=== PATIENT | male | born 1980 | race Caucasian/White ===

== ENCOUNTER 2020-07-31 16:25 | Emergency (ER) | payer OTHER, SELFPAY ==
--- NOTE | 2020-07-31 16:26 | ED.SKABFB ---
HPI - Skin/Abscess/Foreign Bdy General Chief complaint: Skin/Abscess/Foreign Body Stated complaint: poison cari Time Seen by Provider: 07/31/20 16:26 Source: patient and RN notes reviewed History of Present Illness HPI narrative: Patient is a 40-year-old male who presents the urgent care with complaints of poison cari to bilateral upper arms and bilateral lower legs. Patient states that he came in contact with possible poison cari or poison sumac approximately 3 to 4 days ago. Patient states that he did not wake up with a burning/fiery skin or rash until this morning. States that he has not done anything [id number] for his symptoms. No other acute complaints. No acute distress noted. Patient aware of the plan of care. Some parts of this dictation were generated by voice recognition software and may contain typographical and/or grammatical inaccuracies. Related Data Allergies Allergy/AdvReac Type Severity Reaction Status Date / Time No Known Allergies Allergy Verified 07/31/20 16:41 Review of Systems Review of Systems: Narrative: CONSTITUTIONAL: Denies fever, chills, or sweats. EYES: Denies visual changes, redness, or discharge. ENT: Denies rhinorrhea, congestion, sore throat, or otalgia. CARDIOVASCULAR: Denies chest pain, palpitations, or edema. RESPIRATORY: Denies cough or dyspnea. GASTROINTESTINAL: Denies abdominal pain, nausea, vomiting, or diarrhea. GENITOURINARY: Denies dysuria or hematuria. SKIN: Reports of itchy fiery skin to bilateral upper arms and lower legs, possible poison cari MUSCULOSKELETAL: Denies back pain, joint pain, or myalgia. NEUROLOGIC: Denies headache, numbness, or weakness. All other systems reviewed are negative, except as documented in HPI. PMFSH Comments At the time of my signature, I reviewed and agree with the nursing past medical, surgical, social, and family history. There is no relevant family history pertinent to the patient complaint. Exam Narrative: Exam Narrative: GENERAL: This is a well-nourished, well-developed patient, in no apparent distress. HEAD: normocephalic, atraumatic. EYES: PERRL. Sclera clear/white. Vision is grossly intact. EARS: External ears normal NOSE: External nose normal with no obvious nasal discharge, nares without redness, no rhinorrhea. THROAT: Mucous membranes moist NECK: Neck supple CARDIOVASCULAR: Regular rate and rhythm without murmurs, gallops, or rubs. RESPIRATORY: Clear to auscultation. Breath sounds equal bilaterally. No wheezes, rales, or rhonchi. SKIN: Very mild/faint scattered Rhus dermatitis noted bilateral upper arms and bilateral lower legs NEURO: awake, alert, and oriented to person, place and time. There were no obvious focal neurologic abnormalities. EXTREMITIES: No clubbing, cyanosis, or edema. Course Vital Signs Vital signs: Vital Signs Temperature 97.9 F 07/31/20 16:30 Pulse Rate 87 07/31/20 16:30 Respiratory Rate 20 07/31/20 16:30 Blood Pressure 146/86 H 07/31/20 16:30 Pulse Oximetry 100 07/31/20 16:30 Temperature 97.9 F 07/31/20 16:30 Pulse Rate 87 07/31/20 16:30 Respiratory Rate 20 07/31/20 16:30 Blood Pressure 146/86 H 07/31/20 16:30 Pulse Oximetry 100 07/31/20 16:30 Reviewed-patient is informed that they may have pre-hypertension or hypertension based on a blood pressure reading in the department. I recommend the patient call the primary care provider listed on their discharge instructions or a physician of their choice this week to arrange follow-up for further evaluation of possible pre-hypertension or hypertension. MDM - Skin/Abscess/Foreign Bdy MDM Narrative Medical decision making narrative: Advised patient complete the steroid regimen as prescribed. Use [id number] tecnu scrub for the next week. Use Benadryl as needed for itch. May also use [id number] hydrocortisone cream as needed. Be sure to eat and drink with the steroid. Follow-up with your PCP within 2 to 5 days or for wor
[2020-07-31 16:30] VITALS: BP 146/86; PULSE 87; RESP 20; TEMP 36.6; O2SAT 100
== END 2020-07-31 16:45 | disposition home or self-care (01) ==
PROVIDERS: Emergency Provider Nurse Practitioner Family; PCP Family Medicine
DX: L23.7 Allergic contact dermatitis due to plants, except food (principal)
CPT/HCPCS: 99213; G0463